=== PATIENT | female | born 1960 | race African-American/Black ===

== ENCOUNTER 2020-06-03 03:48 | Emergency (ER) | payer SELFPAY ==
[~2020-06-03] VITALS: Ht 172.7 cm; Wt 80.0 kg
[~2020-06-03 03:48] MED LIST: HYDR-523 PO; LISI10TA5 PO
[2020-06-03] MEDS ORDERED: HYDROCODONE/ACETAMINOPHEN 10/325MG TABLET PO ONE (04:45)
[2020-06-03 04:46] VITALS: BP 178/88
== END 2020-06-03 04:51 | disposition home or self-care (01) ==
LOC: ER 03:48
DX: G89.29 Other chronic pain (principal); M54.9 Dorsalgia, unspecified; I10 Essential (primary) hypertension; Z98.890 Other specified postprocedural states
CPT/HCPCS: 99283

== ENCOUNTER 2021-01-06 01:34 | Emergency (ER) | payer BC ==
[~2021-01-06] VITALS: Ht 160 cm; Wt 80.0 kg
[~2021-01-06 01:34] MED LIST changes: +LISI10TA26 PO; -LISI10TA5 PO
[2021-01-06] MEDS ORDERED: HYDROCODONE/ACETAMINOPHEN 5/325MG TABLET PO ONE (03:30)
[2021-01-06] MEDS ORDERED: ACET-2708 MT (03:33)
[2021-01-06 03:36] VITALS: BP 0/0
== END 2021-01-06 03:42 | disposition home or self-care (01) ==
LOC: ER 01:34
DX: G89.29 Other chronic pain (principal); M54.5 Low back pain; I10 Essential (primary) hypertension; Z79.899 Other long term (current) drug therapy; Z98.890 Other specified postprocedural states
CPT/HCPCS: 99283